=== PATIENT | male | born 1965 | race American Indian/Alaskan Native ===

== ENCOUNTER 2022-06-01 06:09 | Day surgery (SDC) | payer BC ==
[2022-06-01] MEDS ORDERED: LACTATED RINGERS 1,000 ML ONE (06:44)
[2022-06-01] MEDS ORDERED: LACTATED RINGERS 1,000 ML IV ONE (07:00)
--- NOTE | 2022-06-01 07:22 | Anesthesia Day of Surgery ---
Anesthesia Day of Surgery - Day of Surgery Patient Examined: Yes Patient H&P Reviewed: Yes Patient is NPO: Yes
--- NOTE | 2022-06-01 07:23 | Anesthesia Consultation ---
Anesthesia Consult and Med Hx Date of service: 06/01/22 - Airway Anesthetic Teeth Evaluation: Poor ROM Head & Neck: Adequate Mental/Hyoid Distance: Adequate Mallampati Class: Class II Intubation Access Assessment: Probably Good - Pulmonary Exam CTA: Yes - Cardiac Exam Cardiac Exam: RRR - Pre-Operative Health Status ASA Pre-Surgery Classification: ASA3 Proposed Anesthetic Plan: MAC - Pulmonary Hx Smoking: Yes (1 PPD X 35 YRS) Hx Sleep Apnea: No (BK PRE SCREEN HIGH RISK) - Cardiovascular System Hx Hypertension: Yes Hx Peripheral Vascular Disease: Yes (RIGHT LEG) - Central Nervous System CVA: Yes (09/2021-NO DEFICITS , TAKES ONLY ASA) Hx Psychiatric Problems: No - Endocrine Hx Non-Insulin Dependent Diabetes: Yes - Hematic Hx Anemia: No - Other Systems Hx Cancer: No
[2022-06-01] MEDS ORDERED: ceFAZolin/Water 2 GM/20 ML 2 GM/20 ML SYRINGE IV SCH (08:00)
[2022-06-01] MEDS ORDERED: LIDOCAINE (1%) 10 MG/1 ML VIAL 20 ML MDV INFILTRATI ONE (08:20)
[2022-06-01] MEDS ORDERED: BUPIVACAINE/PF (0.25%) 2.5 MG/ML 30 ML VIAL INFILTRATI ONE (08:20)
[2022-06-01] MEDS ORDERED: SODIUM CHLORIDE 0.9% IRRIG SOLN 2000 ML IR ONE (08:21)
--- NOTE | 2022-06-01 09:20 | XRay Report ---
RIGHT FOOT 3 VIEWS INDICATION: s/p right great toe partial amputation. COMPARISON: None. IMPRESSION: The distal phalanx of the great toe has been amputated. The remaining bony structures ar e intact. No significant joint pathology. No soft tissue inflammatory changes are appreciated. Signer Name: Johnny Sky Jr, MD Signed: 06/01/2022 9:15 AM Workstation Name: [id number]
[2022-06-01 09:42] VITALS: BP 145/74
--- NOTE | 2022-06-01 18:04 | Post Anesthesia Evaluation ---
- Post Anesthesia Evaluation Patient Participated: Yes Airway Patent: Yes Stable Respiratory Function: Yes Nausea/Vomiting: No Temp > 96.8F: Yes Pain Manageable: Yes Adequeate Hydration: Yes Anesthesia Complications: No Block Receding Appropriately: Yes Patient on Ventilator: No
--- NOTE | 2022-06-07 21:52 | Operative Report ---
DATE OF SURGERY: 06/01/2022 PREOPERATIVE DIAGNOSIS: Chronic ulcer with osteomyelitis, open wound, right foot, great toe. POSTOPERATIVE DIAGNOSIS: Chronic ulcer with osteomyelitis, open wound, right foot, great toe. SURGICAL PROCEDURE: Partial amputation of the right great toe with rotation of flap, right foot. ANESTHESIA: Local with monitored anesthesia care. TOURNIQUET: Pneumatic Ankle Tourniquet. ESTIMATED BLOOD LOSS: Less than 30 mL DESCRIPTION OF PROCEDURE: The patient was brought into the operating room and placed on the operating table in the supine position. Following intravenous sedation, the patient was given 2 grams of Ancef prophylactically. At this time, .25 Percent Marcaine plain was infiltrated into the affected site with 1 percent Lidocaine plain (10 cc total)and adequate local anesthesia was achieved, the foot was then scrubbed, prepped and draped in the usual aseptic manner. At this time, there was noted to be a full-thickness open wound with gangrenous tissue at the periphery greater than 3 cm diameter at the right great toe, extending proximally and plantarly. At this time, after obsercing a full- thickness thickness ulcer/wound and of the outline of the the wound was made and a 10 blade was used and the cut with directly down to the phalax without separation of the tissues down to the proximal phalanx, right great toe. At this time, this ellipse of tissue was removed and passed from the operative field. Deep cultures, aerobic and anaerobic, were also performed at the affected site. It should be noted there was noted to be the a bleeding digital artery and it was carefully dissected to be used in the rotating flap. This artery was thus transposed with a medial flap proximally and plantarly after resecting the proximal phalanx. The area was inspected for any abnormal tissue. All was dissected without incident. The flap was held by retention sutures, 0 ethibond and 3.0 Prolene was used to close up the area. Adaptic and sterile compression dressing was also used. The patient tolerated anesthesia well and was transferred to recovery and will be discharged with a weightbearing to tolerance. TID: [id number] RECEIPT: [id number] TLD/SAY/IQB MTDD
== END 2022-06-01 10:00 | disposition home or self-care (01) ==
LOC: OR 06:09
PROVIDERS: ATTEND Podiatrist Foot & Ankle Surgery
DX: M86.8X8 Other osteomyelitis, other site (principal); M86.171 Other acute osteomyelitis, right ankle and foot; L08.9 Local infection of the skin and subcutaneous tissue, unspecified; I70.209 Unspecified atherosclerosis of native arteries of extremities, unspecified extremity; E78.00 Pure hypercholesterolemia, unspecified; I10 Essential (primary) hypertension; E11.9 Type 2 diabetes mellitus without complications; F17.210 Nicotine dependence, cigarettes, uncomplicated; Z79.899 Other long term (current) drug therapy; Z79.82 Long term (current) use of aspirin; Z79.84 Long term (current) use of oral hypoglycemic drugs; Z98.49 Cataract extraction status, unspecified eye; Z98.890 Other specified postprocedural states; Z86.73 Personal history of transient ischemic attack (TIA), and cerebral infarction without residual deficits
CPT/HCPCS: 28124; 73630; 82962; 87075; 87116; 88305; 88311; J0690; J3490; J7120